=== PATIENT | male | born 1980 | race Caucasian/White ===

== ENCOUNTER 2022-09-22 19:38 | Emergency (ER) | payer OTHER, SELFPAY ==
[2022-09-22 19:46] VITALS: BP 119/86; PULSE 68; RESP 18; TEMP 36.4; O2SAT 97; BMI 41.6
--- NOTE | 2022-09-22 20:26 | ED_ITS ---
HPI - Extremity Injury (Lower) General Chief Complaint: Extremity Injury, Lower Stated Complaint: [facility] LOWER EXTREMITY INJURY Time Seen by Provider: 09/22/22 20:26 Source: patient Mode of arrival: walk-in Limitations: no limitations History of Present Illness HPI Narrative: Patient presents to emergency department complaining of left knee pain. Patient states he tripped and fell forward at work landing on his left knee. He also hit his chest with a cardboard box but is not having any chest pain or shortness of breath. He states his chest does not hurt. He has a history of left knee arthroscopy ?2. He has not taking anything at home for the pain. He is here to see was sent from work to be checked out. He denies any paresthesias, or weakness. Related Data Previous Rx's Medication Instructions Recorded ibuprofen 800 mg tablet 800 mg PO Q8H PRN pain #20 tabs 09/22/22 Allergies Allergy/AdvReac Type Severity Reaction Status Date / Time Sulfa (Sulfonamide Allergy Mild Hives Verified 09/22/22 19:54 Antibiotics) Review of Systems ROS Status of ROS 10 or more systems reviewed and unremarkable except as noted in history and below Exam Narrative Exam Narrative: Vital signs reviewed and nurse's notes. The patient is not hypoxic. General: Alert, no acute distress, patient resting comfortably Skin: warm, intact, no pallor noted Head: Normocephalic, atraumatic Eye: Normal conjunctiva Respiratory: No acute distress Musculoskeletal: No evidence of deformity to the L knee. There is minimal amount of swelling. There is no ecchymosis. No erythema or warmth noted. DP and PT pulses are intact 2+. Normal sensation, normal capillary refill less than 2 seconds. There is no cyanosis or mottling noted. The patient has tenderness to of the right knee. The patient has no laxity with varus or valgus stressing. The patient has negative anterior drawer and Marlena testing. The patient was able to flex and extend although with pain, but there was minimal crepitance. Patient was able to extend leg off the cart without difficulty. No tenderness noted to the 5th MT, midfoot, ankle or proximal fibular area. There is no pain with calcaneal squeeze, achilles tendon is intact and no defect is palpated. The patient has no pelvic instability. The patient has no shortening or rotation noted to the bilateral lower extremities. Neurological: alert and orient x4, normal sensory and motor observed. Psychiatric: Cooperative Constitutional Vital Signs - 24 hr 09/22/22 19:46 Temperature 97.6 F Pulse Rate [Monitor] 68 Respiratory Rate 18 Blood Pressure [Right Arm] 119/86 H Pulse Oximetry 97 Course Vital Signs Vital signs: Vital Signs Temperature 97.6 F 09/22/22 19:46 Pulse Rate 68 09/22/22 19:46 Respiratory Rate 18 09/22/22 19:46 Blood Pressure 119/86 H 09/22/22 19:46 Pulse Oximetry 97 09/22/22 19:46 Temperature 97.6 F 09/22/22 19:46 Pulse Rate 68 09/22/22 19:46 Respiratory Rate 18 09/22/22 19:46 Blood Pressure 119/86 H 09/22/22 19:46 Pulse Oximetry 97 09/22/22 19:46 MDM - Extremity Injury (Lower) MDM Narrative Medical decision making narrative: He says he does not need anything for pain at this time. The x-ray was done. Stress unremarkable. Patient will be given a prescription for Motrin. He'll be released back to work. Follow up occupational health. At this time the patient is without objective evidence of an acute process requiring hospitalization or inpatient management. The patient has remained hemodynamically stable. No additional indication for emergent studies at this time. I answered all questions. Discussed discharge instructions including standard anticipatory guidance and what should prompt a return to the emergency department, including if they get worse are not getting better or develops any new or concerning symptoms. I've given them specific time frame in which to follow-up, and who to follow-up with. The patient demonstrates understanding. Patient is nontoxic and stable for discharge with outpatient follow-up. This note was created with the assistance of a speech recognition program. Although the intention is to generate documents that actually reflects the content of the visit, no guarantees can be provided that every mistake has been identified and corrected by editing. Discharge Plan Discharge Chief Complaint: Extremity Injury, Lower Clinical Impression: Contusion of knee, left Patient Disposition: Home, Self-Care Time of Disposition Decision: 21:43 Condition: Good Mode of Transportation: Private Vehicle Prescriptions / Home Meds: New ibuprofen 800 mg tablet 800 mg PO Q8H PRN (Reason: pain) Qty: 20 0RF Instructions: Knee Pain (ED) Stand Alone Forms: Portal Instructions Referrals: [facility] [Primary Care Provider] - 1 week
--- NOTE | 2022-09-22 20:32 | XR_ITS ---
The [address] [address] Patient Name: SANDY BIMRINGHAM MRN: [id number] date: 1980 Sex: M Assigned Patient Location: ER Current Patient Location: ER Accession/Order Number: [id number] Exam Date: 09/22/2022 20:50 Report Date: 09/22/2022 21:31 At the request of: CHARLES FLORES Procedure: XR knee LT 4V EXAM: XR knee LT 4V HISTORY: Knee pain after fall COMPARISON: None. TECHNIQUE: 4 views FINDINGS: No fracture, dislocation, subluxation or osseous lesion. Patient is status post anterior cruciate ligament grafting. Lateral femoral condyle and proximal tibial hardware. Small osteophytes off the articular surfaces. No knee effusion. IMPRESSION: No visualized acute abnormality Electronically authenticated by: VI ARCINIEGA Date: 09/22/2022 21:31
== END 2022-09-22 22:01 | disposition home or self-care (01) ==
PROVIDERS: Emergency Provider Emergency Medicine
DX: S80.02XA Contusion of left knee, initial encounter (principal); W01.10XA Fall on same level from slipping, tripping and stumbling with subsequent striking against unspecified object, initial encounter
CPT/HCPCS: 73564; 99283